=== PATIENT | female | born 1985 | race African-American/Black ===

== ENCOUNTER 2016-09-14 12:40 | Emergency (ER) | payer OTHER ==
[~2016-09-14] VITALS: Ht 165.1 cm; Wt 72.6 kg
[~2016-09-14 12:40] MED LIST: ALBUTEROL SULF8.5 GM INH; ANUSOL-HC CREAM30 GM RECTAL; AZITHROMYCIN250 MG ORAL; BACTRIM DS TAB1 EAC1 ORAL; BENTYL10 MG ORAL; CIPRO500 MG PO; COLACE100 MG ORAL; DIFLUCAN200 MG ORAL; DOXYCYCLINE MO100 M1 PO; FLAGYL500 MG ORAL; FLONASE1 SPRAYS NASAL; HYDROCODON-ACE1 EA15 ORAL; IBUPROFEN600 MG ORAL; IBUPROFEN600 MG PO; MEDROL DOSEPAK4 MG ORAL; METRONIDAZOLE500 MG PO; NITROFURANTOIN100 M2 ORAL; NITROFURANTOIN100 MG PO; NKM; NORCO 5-325 TA1 EACH ORAL; OMEPRAZOLE40 M1 ORAL; PRILOSEC20 MG ORAL; PROMETHAZINE-C118 M1 ORAL; PROMETHAZINE-D118 ML ORAL; PYRIDIUM100 MG ORAL; PYRIDIUM200 M1 ORAL; VICODIN 5-5001 EACH ORAL; ZANTAC150 MG ORAL; ZITHROMAX250 MG ORAL; ZOFRAN ODT4 MG ORAL; ZOFRAN4 MG ORAL; [UNRECOGNIZED DRUG - REMARK] PO
[2016-09-14 13:00] VITALS: BP 120/82
[2016-09-14] MEDS ORDERED: Famotidine 20 MG/ 2ML VIAL IVP ONE (14:00)
[2016-09-14] MEDS ORDERED: Morphine Sulfate 2mg/ml Inj IVP ONE (14:00)
--- NOTE | 2016-09-14 14:11 | Emergency Room Report ---
History of Present Illness General Chief Complaint: Abdominal Pain Source: Patient, Medical Record Present Illness HPI The patient presents 4 days of midepigastric abdominal pain. The pain is fairly severe at 9/10 at this time. It's constant and radiates towards her back. She took a Zantac yesterday without relief. She denies vomiting any blood or coffee grounds. Addition to that she's not had any diarrhea or melena. Her last period was normal to began a month. She denies any dysuria. Just denies any upper respiratory symptomatology including cough, sore throat. She's had this pain in the past. She denies any problems with her gallbladder. She feels cold but denies any fevers or chills. Had abd CT 05/2015 Multiple visits for abdominal pain with h/o gastritis. Multiple UTIs. Several years ago with OD. Listed in dx in past of opiate dependence (not able to find charts documenting this). Allergies: Coded Allergies: No Known Allergies (Unverified , 06/22/12) Patient History Past Medical History: see triage record, old chart reviewed Social History: Denies: smoking Social History Narrative From home - came on bus but will get ride from Mother Last Menstrual Period: 08/23/16 Now: No Reviewed Nursing Documentation: PMH: Agreed, PSxH: Agreed Nursing Documentation-PMH Past Medical History: No Stated History Review of Systems All Other Systems: negative except mentioned in HPI Physical Exam Vital Signs Date Time Temp Pulse Resp B/P Pulse Ox O2 Delivery O2 Flow Rate FiO2 09/14/16 12:55 98.4 66 16 120/82 100 Room Air Medical Decision Making Diagnostic Impression: Primary Impression: Abdominal pain Qualified Codes: R10.13 - Epigastric pain ER Course The patient presents with epigastric pain and vomiting. Differential includes gastritis, gallbladder etiology, peptic ulcer disease, GERD, gastroenteritis although there is no diarrhea. Urgent evaluation with labs will be undertaken. Patient does not appear toxic. She will be treated with IV hydration and Pepcid along with analgesia. Labs significant for normal WBC and h/h. Lipase also normal with normal LFTs. UA without infection. Patient required second dose of analgesia. Doing better. Needs follow up with PMD. Patient stable for outpatient observation and treatment. Laboratory Tests Test 09/14/16 14:10 09/14/16 14:15 White Blood Count 5.8 K/UL (4.8-10.8) Red Blood Count 5.06 M/UL (4.20-5.40) Hemoglobin 15.0 G/DL (12.0-16.0) Hematocrit 46.9 % (37.0-47.0) Mean Corpuscular Volume 93 FL (80-99) Mean Corpuscular Hemoglobin 29.6 PG (27.0-31.0) Mean Corpuscular Hemoglobin Concent 31.9 G/DL (32.0-36.0) L Red Cell Distribution Width 12.2 % (11.6-14.8) Platelet Count 359 K/UL (150-450) Mean Platelet Volume 6.1 FL (6.5-10.1) L Neutrophils (%) (Auto) 42.9 % (45.0-75.0) L Lymphocytes (%) (Auto) 47.8 % (20.0-45.0) H Monocytes (%) (Auto) 7.6 % (1.0-10.0) Eosinophils (%) (Auto) 0.7 % (0.0-3.0) Basophils (%) (Auto) 1.0 % (0.0-2.0) Sodium Level 136 mEQ/L (135-145) Potassium Level 4.2 mEQ/L (3.4-4.9) Chloride Level 96 mEQ/L (98-107) L Carbon Dioxide Level 25 mEQ/L (20-30) Anion Gap 15 (5-15) Blood Urea Nitrogen 5 mg/dL (7-23) L Creatinine 0.9 mg/dL (0.5-0.9) Estimate Glomerular Filtration Rate > 60 mL/min (>60) Glucose Level 95 mg/dL (74-106) Calcium Level 9.7 mg/dL (8.6-10.2) Total Bilirubin 0.4 mg/dL (0.0-1.2) Aspartate Amino Transferase (AST) 13 U/L (5-40) Alanine Aminotransferase (ALT) 14 U/L (3-33) Alkaline Phosphatase 58 U/L (35-104) Total Protein 8.1 g/dL (6.6-8.7) Albumin 4.5 g/dL (3.5-5.2) Globulin 3.6 g/dL Albumin/Globulin Ratio 1.2 (1.0-2.7) Lipase 16 U/L (< 60) Urine Color Yellow Urine Appearance Slightly cloudy Urine pH 6 (4.5-8.0) Urine Specific [place] 1.020 (1.005-1.035) Urine Protein 1+ (NEGATIVE) H Urine Glucose (UA) Negative (NEGATIVE) Urine Ketones 3+ (NEGATIVE) H Urine Occult Blood Negative (NEGATIVE) Urine Nitrite Negative (NEGATIVE) Urine Bilirubin Negative (NEGATIVE) Urine Urobilinogen 4 MG/DL (0.0-1.0) H Urine Leukocyte Esterase 1+ (NEGATIVE) H Urine RBC 0-2 /HPF (0 - 2) Urine WBC 2-4 /HPF (0 - 2) Urine Squamous Epithelial Cells Few /LPF (NONE/OCC) Urine Bacteria Few /HPF (NONE) Urine HCG, Qualitative Negative Last Vital Signs Date Time Temp Pulse Resp B/P Pulse Ox O2 Delivery O2 Flow Rate FiO2 09/14/16 18:35 98.6 09/14/16 18:34 72 18 130/60 100 Room Air 72 Status: improved Disposition: HOME, SELF-CARE Condition: Improved Scripts Ondansetron Odt* (ZOFRAN ODT*) 4 Mg Tab.rapdis 4 MG ORAL Q8H Y for Nausea & Vomiting, #6 TAB 0 Refills Prov: Deonte De Leon M.D. 09/14/16 Famotidine (PEPCID) 20 Mg Tablet 20 MG ORAL DAILY, #30 TAB 0 Refills Prov: Deonte De Leon M.D. 09/14/16 Hydrocodone Bit/Acetaminophen 5-325* (NORCO 5-325*) 1 Each Tablet 1 TAB ORAL Q6H Y for For Pain, #10 TAB 0 Refills Prov: Deonte De Leon M.D. 09/14/16 Deonte De Leon M.D. Sep 14, 2016 14:11
[2016-09-14] MEDS ORDERED: Tubing IV Cassette IV ONE (14:23)
[2016-09-14 14:32] LABS: APPEARANCE,URINE SLIGHTLY CLOUDY; KETONES,URINE 3+ (NEGATIVE); LEUKOCYTE ESTERASE ,URINE 1+ (NEGATIVE); NITRITE,URINE NEGATIVE (NEGATIVE); PH,URINE 6 (4.5-8.0); PROTEIN,URINE 1+ (NEGATIVE); UROBILINOGEN,URINE 4 MG/DL (0.0-1.0)
[2016-09-14 14:33] LABS: EOSINOPHILS % (AUTO) 0.7 % (0.0-3.0); LYMPHOCYTES % (AUTO) 47.8 % (20.0-45.0); MEAN CORPUSCULAR HEMOGLOBIN 29.6 PG (27.0-31.0); MEAN CORPUSCULAR HGB CONC 31.9 G/DL (32.0-36.0); MEAN CORPUSCULAR VOLUME 93 FL (80-99); MEAN PLATELET VOLUME 6.1 FL (6.5-10.1); MONOCYTES % (AUTO) 7.6 % (1.0-10.0); NEUTROPHILS % (AUTO) 42.9 % (45.0-75.0); PLATELET COUNT 359 K/UL (150-450); RED BLOOD COUNT 5.06 M/UL (4.20-5.40); RED CELL DISTRIBUTION WIDTH 12.2 % (11.6-14.8); WHITE BLOOD COUNT 5.8 K/UL (4.8-10.8)
[2016-09-14 14:50] LABS: ALANINE AMINOTRANSFERASE 14 U/L (3-33); ALBUMIN/GLOBULIN RATIO 1.2 (1.0-2.7); ANION GAP 15 (5-15); ASPARTATE AMINO TRANSFERASE 13 U/L (5-40); CALCIUM 9.7 mg/dL (8.6-10.2); CARBON DIOXIDE 25 mEQ/L (20-30); CHLORIDE 96 mEQ/L (98-107); CREATININE 0.9 mg/dL (0.5-0.9); GLOMERULAR FILTRATION RATE > 60 mL/min (>60); HEMOLYSIS 25; LIPASE 16 U/L (< 60); POTASSIUM 4.2 mEQ/L (3.4-4.9); SODIUM 136 mEQ/L (135-145); TOTAL PROTEIN 8.1 g/dL (6.6-8.7)
[2016-09-14 14:50] LABS: BACTERIA,URINE FEW /HPF; RBC,URINE 0-2 /HPF (0 - 2); SQUAMOUS EPITHELIAL CELL,UR FEW /LPF (NONE/OCC)
[2016-09-14 15:19] VITALS: BP 126/62
[2016-09-14] MEDS ORDERED: Morphine Sulfate 4mg/ml Inj IVP ONE (18:00)
[2016-09-14] MEDS ORDERED: ZOFRAN ODT4 MG ORAL (18:29)
[2016-09-14] MEDS ORDERED: PEPCID20 MG ORAL (18:29)
[2016-09-14] MEDS ORDERED: NORCO 5-325 TA1 EACH ORAL (18:29)
[2016-09-14 18:34] VITALS: BP 130/60
== END 2016-09-14 18:34 | disposition home or self-care (01) ==
LOC: EMR 14:24
DX: R10.13 Epigastric pain (principal); R11.10 Vomiting, unspecified
CPT/HCPCS: 36415; 80053; 81003; 81025; 83690; 85025; 96361; 96374; 96375; 99284; J2270; J2405; S0028

== ENCOUNTER 2017-01-31 12:05 | Emergency (ER) | payer OTHER ==
[~2017-01-31] VITALS: Ht 167.6 cm; Wt 80.7 kg
[~2017-01-31 12:05] MED LIST changes: +PEPCID20 MG ORAL
--- NOTE | 2017-01-31 12:53 | Emergency Room Report ---
History of Present Illness General Chief Complaint: Lower Extremity Injury Source: Patient Present Illness HPI 31 YO Female presents to the ED c/o puncture wound to Left Foot since yesterday pt. reports 7/10 pain localized that is exacerbated with palpation or wearing tight shoes. Pt. states she sustained puncture from large piece of sharp glass. pt. denies small fragments of glass or fb. pt. reports mild surrounding erythema to wound that has been progressive, reports mild swelling, denies bone pain or tenderness. pt. denies fevers, chills, or increased temperature of the affected extremity. Pt states she is UTD with tetanus vaccination. Denies numbness tingling or loss of sensation or gross motor movements of the extremities, incontinence of bowel or bladder. Denies CP, Palpitations, LOC, AMS, dizziness, Changes in Vision, Sensation, paresthesias, or a sudden severe headache. Allergies: Coded Allergies: No Known Allergies (Unverified , 06/22/12) Patient History Past Medical History: see triage record Past Surgical History: none Pertinent Family History: none Last Menstrual Period: 01/23/17 Now: No : 5 Para: 1 Immunizations: UTD Reviewed Nursing Documentation: PMH: Agreed, PSxH: Agreed Nursing Documentation-PMH Past Medical History: No Stated History Review of Systems All Other Systems: negative except mentioned in HPI Physical Exam Vital Signs Date Time Temp Pulse Resp B/P Pulse Ox O2 Delivery O2 Flow Rate FiO2 01/31/17 12:12 97.7 102 17 126/82 98 Room Air Sp02 EP Interpretation: reviewed, normal General Appearance: no apparent distress, alert, GCS 15, non-toxic Head: normocephalic, atraumatic Eyes: bilateral eye PERRL, bilateral eye normal inspection ENT: hearing grossly normal, normal pharynx, no angioedema, normal voice Neck: full range of motion, supple/symm/no masses Respiratory: lungs clear, normal breath sounds, speaking full sentences Cardiovascular #1: regular rate, rhythm, no edema Cardiovascular #2: 2+ dorsalis pedis (R), 2+ dorsalis pedis (L) Rectal: deferred Musculoskeletal: back normal, gait/station normal, normal range of motion, non- tender, no calf tenderness Neurologic: alert, oriented x3, responsive, motor strength/tone normal, sensory intact, speech normal Psychiatric: judgement/insight normal, memory normal, mood/affect normal, no suicidal/homicidal ideation Skin: normal color, no rash, warm/dry, well hydrated, other - 0.5cm puncture wound to the left medial foot with surrounding erythema, no evidence of fb, no bleeding at this time, Lymphatic: no adenopathy Medical Decision Making PA Attestation Dr. trivedi is my supervising Physician whom patient management has been discussed with. Diagnostic Impression: Primary Impression: Puncture wound ER Course Pt. presents to the ED c/o puncture wound to Left Foot since yesterday. Ddx considered but are not limited to foreign body, tendon injury, cellulitis, Vital signs: are WNL, pt. is afebrile H&PE are most consistent with: Puncture wound of the left medial foot, no evidence of foreign body or infection at this time. ORDERS: none required at this time, the diagnosis is clinical ED INTERVENTIONS: - The wound was copiously irrigated with normal saline, and explored for foreign body for which no FB was found. -Discussed with patient that we do not close puncture wounds as that would increase his risk of infection. -bacitracin is applied by RN. - Discussed with patient that we will be treating her with oral antibiotics. DISCHARGE: At this time pt. is stable for d/c to home. Will provide printed patient care instructions, and any necessary prescriptions. Care plan and follow up instructions have been discussed with the patient prior to discharge. Last Vital Signs Date Time Temp Pulse Resp B/P Pulse Ox O2 Delivery O2 Flow Rate FiO2 01/31/17 12:12 97.7 102 17 126/82 98 Room Air Disposition: HOME, SELF-CARE Condition: Stable Scripts Ibuprofen* (MOTRIN*) 600 Mg Tablet 600 MG ORAL THREE TIMES A DAY, #30 TAB 0 Refills Prov: Maria Del Rosario Kirk P.AJelly 01/31/17 Bacitracin/Polymyxin B Sulfate (BACITRACIN-POLYMYXIN OINTMENT) 28.35 Gm Oint...g. 1 APPLIC TP BID, #28.3 GM Prov: Maria Del Rosario Kirk P.A. 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 Return to Full Activity: Feb 07, 2017 Patient Instructions: Puncture Wound, [id number] Additional Instructions: Take medications as directed. Follow up with PCP in 3-5 days Return sooner to ED if new symptoms occur, or current symptoms become worse. - Please note that this Emergency Department Report was dictated using MATIvisioncertified nurse operating room technology software, occasionally this can lead to erroneous entry secondary to interpretation by the dictation equipment. Maria Del Rosario Kirk Jan 31, 2017 12:53
[2017-01-31] MEDS ORDERED: CEPHALEXIN500 MG ORAL (12:54)
[2017-01-31] MEDS ORDERED: IBUPROFEN600 MG ORAL (12:54)
[2017-01-31] MEDS ORDERED: BACITRACIN-P28.35 GM TP (12:54)
[2017-01-31] MEDS ORDERED: Bacitracin Oint UD TOPIC ONE (13:00)
[2017-01-31 13:06] VITALS: BP 126/82
== END 2017-01-31 13:08 | disposition home or self-care (01) ==
LOC: EMR 12:37
DX: S91.332A Puncture wound without foreign body, left foot, initial encounter (principal); W25.XXXA Contact with sharp glass, initial encounter; Y93.9 Activity, unspecified; Y92.9 Unspecified place or not applicable
CPT/HCPCS: 99284

== ENCOUNTER 2017-02-23 19:57 | Emergency (ER) | payer OTHER ==
[~2017-02-23] VITALS: Ht 167.6 cm; Wt 80.7 kg
[~2017-02-23 19:57] MED LIST changes: +BACITRACIN-P28.35 GM TP; +CEPHALEXIN500 MG ORAL
[2017-02-23 20:15] VITALS: BP 120/84
[2017-02-23] MEDS ORDERED: Morphine Sulfate 4mg/ml Inj IVP ONE (20:30)
[2017-02-23 20:37] LABS: APPEARANCE,URINE CLEAR; BASOPHILS % (AUTO) 1.4 % (0.0-2.0); EOSINOPHILS % (AUTO) 1.5 % (0.0-3.0); KETONES,URINE NEGATIVE (NEGATIVE); LEUKOCYTE ESTERASE ,URINE 1+ (NEGATIVE); LYMPHOCYTES % (AUTO) 47.1 % (20.0-45.0); MEAN CORPUSCULAR HEMOGLOBIN 30.4 PG (27.0-31.0); MEAN CORPUSCULAR HGB CONC 32.7 G/DL (32.0-36.0); MEAN CORPUSCULAR VOLUME 93 FL (80-99); MEAN PLATELET VOLUME 6.1 FL (6.5-10.1); MONOCYTES % (AUTO) 3.9 % (1.0-10.0); NEUTROPHILS % (AUTO) 46.1 % (45.0-75.0); NITRITE,URINE NEGATIVE (NEGATIVE); PH,URINE 5 (4.5-8.0); PLATELET COUNT 310 K/UL (150-450); PROTEIN,URINE NEGATIVE (NEGATIVE); RED BLOOD COUNT 4.35 M/UL (4.20-5.40); RED CELL DISTRIBUTION WIDTH 13.8 % (11.6-14.8); UROBILINOGEN,URINE NORMAL MG/DL (0.0-1.0); WHITE BLOOD COUNT 7.6 K/UL (4.8-10.8)
[2017-02-23 20:44] LABS: RBC,URINE 0-2 /HPF (0 - 2)
[2017-02-23 20:45] LABS: WBC,URINE 0-2 /HPF (0 - 2)
[2017-02-23 20:52] LABS: ALANINE AMINOTRANSFERASE 8 U/L (3-33); ALBUMIN/GLOBULIN RATIO 1.2 (1.0-2.7); ANION GAP 11 (5-15); ASPARTATE AMINO TRANSFERASE 11 U/L (5-40); CALCIUM 9.9 mg/dL (8.6-10.2); CARBON DIOXIDE 26 mEQ/L (20-30); CHLORIDE 100 mEQ/L (98-107); CREATININE 0.7 mg/dL (0.5-0.9); GLOMERULAR FILTRATION RATE > 60 mL/min (>60); HEMOLYSIS 7; INR 0.9 (0.9-1.1); LIPASE 18 U/L (< 60); POTASSIUM 4.4 mEQ/L (3.4-4.9); PROTHROMBIN TIME 9.7 SEC (9.30-11.50); SODIUM 137 mEQ/L (135-145)
[2017-02-23] MEDS ORDERED: Oxycodone/Acetaminophen 5-325 ORAL ONE (21:45)
--- NOTE | 2017-02-23 21:45 | Emergency Room Report ---
History of Present Illness General Chief Complaint: Abdominal Pain Source: Patient Present Illness HPI Patient presents with RUQ pain. Severe and constant. Achy pressure with some burning. 04/29. Not take any medicine. Also radiates into chest. No cough, wheezing or fevers. She's had abdominal pain evaluations here in past. 12/30/14 - had u/s - normal. 01/20/16 CT - no appi. Had eval 09/14/16 for abdominal pain. Her last period was normal. No rashes, URI, cough, dyspnea, calf swell or pain, diarrhea, melena, dysuria. Not anxious. Allergies: Coded Allergies: No Known Allergies (Unverified , 06/22/12) Patient History Past Medical History: see triage record Social History: Denies: smoking Social History Narrative at home Last Menstrual Period: A WEEK AGO Now: No Reviewed Nursing Documentation: PMH: Agreed, PSxH: Agreed Nursing Documentation-PMH Past Medical History: No Stated History Review of Systems All Other Systems: negative except mentioned in HPI Physical Exam Vital Signs Date Time Temp Pulse Resp B/P Pulse Ox O2 Delivery O2 Flow Rate FiO2 02/23/17 20:05 98.2 98 18 125/83 98 Room Air Sp02 EP Interpretation: reviewed, normal General Appearance: well appearing, no apparent distress, GCS 15 Head: normocephalic Eyes: bilateral eye PERRL, bilateral eye normal inspection ENT: moist mucus membranes Neck: supple Respiratory: lungs clear, normal breath sounds Cardiovascular #1: regular rate, rhythm Cardiovascular #2: 2+ radial (R) Gastrointestinal: normal inspection, normal bowel sounds, no mass, non- distended, no guarding, no rebound, tenderness - RUQ Musculoskeletal: back normal, gait/station normal, normal range of motion Neurologic: alert, oriented x3, grossly normal Psychiatric: mood/affect normal Skin: normal inspection, warm/dry Medical Decision Making Diagnostic Impression: Primary Impression: Abdominal pain Qualified Codes: R10.11 - Right upper quadrant pain Ruled Out: Gallstone ER Course Patient presents with RUQ abdominal pain. ddx: gastritis, PUD, gall stones amongst others. Pain reported as severe therefore evaluation with labs and ultrasound. Treatment with IV hydration and analgesia. Labs with normal WBC, lytes, lipase. UA normal. Ultrasound no gall stones. Patient improved. Patient stable for outpatient observation and treatment. Laboratory Tests Test 02/23/17 20:00 White Blood Count 7.6 K/UL (4.8-10.8) Red Blood Count 4.35 M/UL (4.20-5.40) Hemoglobin 13.2 G/DL (12.0-16.0) Hematocrit 40.4 % (37.0-47.0) Mean Corpuscular Volume 93 FL (80-99) Mean Corpuscular Hemoglobin 30.4 PG (27.0-31.0) Mean Corpuscular Hemoglobin Concent 32.7 G/DL (32.0-36.0) Red Cell Distribution Width 13.8 % (11.6-14.8) Platelet Count 310 K/UL (150-450) Mean Platelet Volume 6.1 FL (6.5-10.1) L Neutrophils (%) (Auto) 46.1 % (45.0-75.0) Lymphocytes (%) (Auto) 47.1 % (20.0-45.0) H Monocytes (%) (Auto) 3.9 % (1.0-10.0) Eosinophils (%) (Auto) 1.5 % (0.0-3.0) Basophils (%) (Auto) 1.4 % (0.0-2.0) Prothrombin Time 9.7 SEC (9.30-11.50) Prothrombin Time INR 0.9 (0.9-1.1) PTT 30 SEC (23-33) Urine Color Pale yellow Urine Appearance Clear Urine pH 5 (4.5-8.0) Urine Specific [place] 1.025 (1.005-1.035) Urine Protein Negative (NEGATIVE) Urine Glucose (UA) Negative (NEGATIVE) Urine Ketones Negative (NEGATIVE) Urine Occult Blood Negative (NEGATIVE) Urine Nitrite Negative (NEGATIVE) Urine Bilirubin Negative (NEGATIVE) Urine Urobilinogen Normal MG/DL (0.0-1.0) Urine Leukocyte Esterase 1+ (NEGATIVE) H Urine RBC 0-2 /HPF (0 - 2) Urine WBC 0-2 /HPF (0 - 2) Urine Squamous Epithelial Cells None /LPF (NONE/OCC) Urine Bacteria None /HPF (NONE) Urine HCG, Qualitative Negative Sodium Level 137 mEQ/L (135-145) Potassium Level 4.4 mEQ/L (3.4-4.9) Chloride Level 100 mEQ/L (98-107) Carbon Dioxide Level 26 mEQ/L (20-30) Anion Gap 11 (5-15) Blood Urea Nitrogen 13 mg/dL (7-23) Creatinine 0.7 mg/dL (0.5-0.9) Estimate Glomerular Filtration Rate > 60 mL/min (>60) Glucose Level 81 mg/dL (74-106) Calcium Level 9.9 mg/dL (8.6-10.2) Total Bilirubin < 0.2 mg/dL (0.0-1.2) Aspartate Amino Transferase (AST) 11 U/L (5-40) Alanine Aminotransferase (ALT) 8 U/L (3-33) Alkaline Phosphatase 71 U/L (35-104) Total Protein 8.0 g/dL (6.6-8.7) Albumin 4.4 g/dL (3.5-5.2) Globulin 3.6 g/dL Albumin/Globulin Ratio 1.2 (1.0-2.7) Lipase 18 U/L (< 60) CT/MRI/US Diagnostic Results CT/MRI/US Diagnostic Results : Imaging Test Ordered: u/s abd Impression no gall stones Findings: Comparison: 1315. Liver normal size and surface contour, parenchymal echogenicity. No focal lesions. Gallbladder unremarkable. No intraluminal stones or sludge. No mural thickening or adjacent fluid collections. Sonographic Cannon sign negative.. Bile ducts normal caliber. Common bile duct 4 mm. Pancreas visualized portions unremarkable. Spleen unremarkable. Right kidney unremarkable. Left kidney unremarkable. Proximal and mid abdominal aorta, intrahepatic portion of inferior vena cava patent, normal caliber. Sulci are obscured by bowel gas. Duplex Doppler imaging demonstrates antegrade flow in splenic, portal, hepatic veins. No ascites. IMPRESSION: Incomplete visualization of abdominal aorta Otherwise negative abdominal ultrasound, unchanged. Last Vital Signs Date Time Temp Pulse Resp B/P Pulse Ox O2 Delivery O2 Flow Rate FiO2 02/23/17 22:25 98.4 74 16 126/82 100 Room Air Status: improved Disposition: HOME, SELF-CARE Condition: Improved Scripts Ondansetron Odt* (ZOFRAN ODT*) 4 Mg Tab.rapdis 4 MG ORAL Q6H Y for Nausea & Vomiting, #6 TAB 1 Refill Prov: Deonte De Leon M.D. 02/23/17 Tramadol Hcl* (ULTRAM*) 50 Mg Tablet 50 MG ORAL Q6H Y for For Pain, #10 TAB 0 Refills Prov: Deonte De Leon M.D. 02/23/17 Famotidine (PEPCID) 20 Mg Tablet 20 MG ORAL DAILY, #30 TAB 0 Refills Prov: Deonte De Leon M.D. 02/23/17 Deonte De Leon M.D. Feb 23, 2017 21:45
[2017-02-23] MEDS ORDERED: TRAMADOL HCL50 MG ORAL (21:47)
[2017-02-23] MEDS ORDERED: PEPCID20 MG ORAL (21:47)
[2017-02-23] MEDS ORDERED: ZOFRAN ODT4 MG ORAL (21:47)
[2017-02-23 22:25] VITALS: BP 126/82
--- NOTE | 2017-02-26 08:39 | Diagnostic Imaging Report ---
Indications: Abdominal pain Technique: Transabdominal real-time grayscale and duplex Doppler imaging of the upper abdomen and retroperitoneum was performed. Findings: Comparison: 1315. Liver normal size and surface contour, parenchymal echogenicity. No focal lesions. Gallbladder unremarkable. No intraluminal stones or sludge. No mural thickening or adjacent fluid collections. Sonographic Cannon sign negative.. Bile ducts normal caliber. Common bile duct 4 mm. Pancreas visualized portions unremarkable. Spleen unremarkable. Right kidney unremarkable. Left kidney unremarkable. Proximal and mid abdominal aorta, intrahepatic portion of inferior vena cava patent, normal caliber. Sulci are obscured by bowel gas. Duplex Doppler imaging demonstrates antegrade flow in splenic, portal, hepatic veins. No ascites. IMPRESSION: Incomplete visualization of abdominal aorta Otherwise negative abdominal ultrasound, unchanged.
== END 2017-02-23 22:25 | disposition home or self-care (01) ==
LOC: EMR 20:40
DX: R10.11 Right upper quadrant pain (principal); R07.9 Chest pain, unspecified
CPT/HCPCS: 76700; 80053; 81003; 81025; 83690; 85025; 85610; 85730; 96361; 96374; 96375; 99284; J2270; J2405

== ENCOUNTER 2017-07-17 22:59 | Emergency (ER) | payer MEDICAID, OTHER ==
[~2017-07-17] VITALS: Ht 167.6 cm; Wt 77.1 kg
[~2017-07-17 22:59] MED LIST changes: +TRAMADOL HCL50 MG ORAL
--- NOTE | 2017-07-17 23:27 | Emergency Room Report ---
History of Present Illness General Chief Complaint: Abdominal Pain Source: Patient Present Illness HPI 31-year-old female walks in with 2 days of right upper quadrant pain associated with nausea, worse with eating food, worse with leaning and bending over. However pain also is in the left lower quadrant of abdomen. No associated vomiting, diarrhea, fever chills or recent travel or sick contacts. No previous abdominal or pelvic surgery. Patient did not take any medication for pain. Patient denies dysuria, polyuria. Patient denies history of renal stones. Patient states she does not have any other medical problems. Ultrasound on previous visits did not show any gallstones. Allergies: Coded Allergies: No Known Allergies (Unverified , 06/22/12) Patient History Past Medical History: none Past Surgical History: none Pertinent Family History: none Social History: Denies: smoking, alcohol use, drug use Last Menstrual Period: unk Now: No Immunizations: UTD Reviewed Nursing Documentation: PMH: Agreed, PSxH: Agreed Nursing Documentation-PMH Hx Gastrointestinal Problems: Yes - ETIENNE REFLUX Review of Systems All Other Systems: negative except mentioned in HPI Physical Exam Vital Signs Date Time Temp Pulse Resp B/P (MAP) Pulse Ox O2 Delivery O2 Flow Rate FiO2 07/17/17 23:04 98.1 78 16 123/86 100 Room Air Sp02 EP Interpretation: reviewed, normal General Appearance: normal inspection, well appearing, no apparent distress, alert, GCS 15, other - patient talking on phone in [place] Head: normocephalic, atraumatic Eyes: bilateral eye PERRL, bilateral eye EOMI ENT: normal ENT inspection, hearing grossly normal, normal voice Neck: normal inspection, full range of motion, supple, no bony tend Respiratory: normal inspection, lungs clear, normal breath sounds, no respiratory distress, no retraction, no wheezing Cardiovascular #1: regular rate, rhythm, no edema Gastrointestinal: normal inspection, normal bowel sounds, soft, no guarding, no hernia, other - Mild RUQ ttp. No peritonitis. 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 tested, speech normal Psychiatric: normal inspection, judgement/insight normal, mood/affect normal Skin: normal inspection, normal color, no rash Medical Decision Making Diagnostic Impression: Primary Impression: Abdominal pain Qualified Codes: R10.11 - Right upper quadrant pain ER Course 31-year-old female with 2 days of abdominal pain No signs stable, afebrile Labs negative for leukocytosis, H&H stable, no metabolic or LFT abnormality Urine negative Urinalysis negative for infection Differential includes gastritis or muscular skeletal pain Pain improved after IV Toradol and GI cocktail Unlikely acute bacterial or surgical emergency requiring additional workup, imaging, or admission at this time given patient's well appearance 2 days duration the pain and negative Lab workup ER course: Patient has remained stable during ED stay. Disposition: Patient is to be discharged to home. Prescriptions given are tylenol, pepcid Patient is instructed to follow up with their primary care doctor within 5 days. Strict return precautions discussed with patient such as fever, chills, worsening/severe pain, nausea, vomiting, which may indicate severe illness. Patient verbalizes understanding and agrees with plan. Please note that this Emergency Department Report was dictated using [employer] Techcoal shoveler technology software, occasionally this can lead to erroneous entry secondary to interpretation by the dictation equipment Last Vital Signs Date Time Temp Pulse Resp B/P (MAP) Pulse Ox O2 Delivery O2 Flow Rate FiO2 07/17/17 23:04 98.1 78 16 123/86 100 Room Air Status: improved Disposition: HOME, SELF-CARE Scripts Acetaminophen (Tylenol) 325 Mg Tablet 650 MG ORAL Q6H Y for Prn Pain/Headache/Temp > 101 for 7 Days, #30 TAB 0 Refills Prov: ALYSSA THACKER M.D. 07/18/17 Famotidine (PEPCID) 40 Mg Tablet 40 MG PO DAILY for 7 Days, #14 TAB 0 Refills Prov: ALYSSA THACKER M.D. 07/18/17 ALYSSA THACKER M.D. Jul 17, 2017 23:26
[2017-07-17] MEDS ORDERED: Metoclopramide 10mg/2ml Inj IVP ONE (23:30)
[2017-07-17] MEDS ORDERED: Mylanta II UD 30ml ORAL ONE (23:30)
[2017-07-17] MEDS ORDERED: Lidocaine 2% Visc 15ml soln ORAL ONE (23:30)
[2017-07-17 23:42] LABS: APPEARANCE,URINE CLEAR; KETONES,URINE 1+ (NEGATIVE); LEUKOCYTE ESTERASE ,URINE NEGATIVE (NEGATIVE); NITRITE,URINE NEGATIVE (NEGATIVE); PH,URINE 6 (4.5-8.0); UROBILINOGEN,URINE 4 MG/DL (0.0-1.0)
[2017-07-17 23:45] LABS: BASOPHILS % (AUTO) 1.5 % (0.0-2.0); LYMPHOCYTES % (AUTO) 40.4 % (20.0-45.0); MEAN CORPUSCULAR HEMOGLOBIN 29.9 PG (27.0-31.0); MEAN CORPUSCULAR HGB CONC 32.5 G/DL (32.0-36.0); MEAN CORPUSCULAR VOLUME 92 FL (80-99); MEAN PLATELET VOLUME 6.1 FL (6.5-10.1); MONOCYTES % (AUTO) 4.7 % (1.0-10.0); NEUTROPHILS % (AUTO) 51.3 % (45.0-75.0); PLATELET COUNT 392 K/UL (150-450); RED BLOOD COUNT 4.22 M/UL (4.20-5.40); RED CELL DISTRIBUTION WIDTH 12.4 % (11.6-14.8); WHITE BLOOD COUNT 8.1 K/UL (4.8-10.8)
[2017-07-17] MEDS ORDERED: Ketorolac 30mg Inj IV ONE (23:45)
[2017-07-17 23:48] VITALS: BP 126/84
[2017-07-17 23:48] LABS: PROTEIN,URINE NEGATIVE (NEGATIVE)
[2017-07-17 23:58] LABS: ALANINE AMINOTRANSFERASE 24 U/L (12-78); ALBUMIN/GLOBULIN RATIO 0.7 (1.0-2.7); ANION GAP 8 mmol/L (5-15); ASPARTATE AMINO TRANSFERASE 15 U/L (15-37); CALCIUM 8.9 MG/DL (8.5-10.1); CARBON DIOXIDE 26 MMOL/L (21-32); CHLORIDE 100 MMOL/L (98-107); CREATININE 0.7 MG/DL (0.55-1.30); GLOMERULAR FILTRATION RATE > 60 mL/min (>60); LIPASE 78 U/L (73-393); POTASSIUM 3.7 MMOL/L (3.5-5.1); SODIUM 134 MMOL/L (136-145); TOTAL PROTEIN 8.2 G/DL (6.4-8.2)
[2017-07-18] MEDS ORDERED: PEPCID40 MG PO (00:29)
[2017-07-18] MEDS ORDERED: TYLENOL325 MG ORAL (00:29)
[2017-07-18 00:36] VITALS: BP 122/82
[2017-07-18 00:37] VITALS: BP 122/82
== END 2017-07-18 00:40 | disposition home or self-care (01) ==
LOC: EMR 23:15
DX: R10.31 Right lower quadrant pain (principal); K21.9 Gastro-esophageal reflux disease without esophagitis
CPT/HCPCS: 36415; 80053; 81003; 81025; 83690; 85025; 96374; 96375; 99284; J1885; J2765

== ENCOUNTER 2018-05-05 17:24 | Emergency (ER) | payer MEDICAID ==
[~2018-05-05] VITALS: Ht 165.1 cm; Wt 89.8 kg
[~2018-05-05 17:24] MED LIST changes: +PEPCID40 MG PO; +TYLENOL325 MG ORAL
--- NOTE | 2018-05-05 17:53 | Emergency Room Report ---
History of Present Illness General Chief Complaint: General Complaint Source: Patient (Bear Ken) Source: Patient (Michael Rosales MD) Present Illness HPI Patient is a 32-year-old female presented after increased skin rash for lower extremity is. Patient reports having increased itchiness to her lower legs. Patient is presently 27 . Patient denies any fever. She reports having multiple bites. The patient denies any vaginal bleeding. She reports having movement immediately prior to being seen. She had not been having any leakage of fluid. She was having moderate itching. (Michael Rosales MD) Allergies: Coded Allergies: No Known Allergies (Unverified , 06/22/12) Patient History Last Menstrual Period: 10/10/17 Now: Yes : 2 Para: 1 (Bear Ken) Past Medical History: see triage record Reviewed Nursing Documentation: PMH: Agreed; PSxH: Agreed (Michael Rosales MD) Nursing Documentation-PMH Hx Gastrointestinal Problems: Yes - ACID REFLUX (Bear Ken) Review of Systems All Other Systems: negative except mentioned in HPI (Michael Rosales MD) Physical Exam Vital Signs Date Time Temp Pulse Resp B/P (MAP) Pulse Ox O2 Delivery O2 Flow Rate FiO2 05/05/18 17:28 98.1 109 22 118/72 96 Room Air 98.1 (Bear Ken) Sp02 EP Interpretation: reviewed, normal General Appearance: normal inspection, well appearing, no apparent distress, alert, GCS 15 Head: atraumatic ENT: normal ENT inspection, hearing grossly normal, normal voice Neck: normal inspection, full range of motion, supple, no bony tend Respiratory: normal inspection, lungs clear, normal breath sounds, no respiratory distress, no retraction, no wheezing Cardiovascular #1: regular rate, rhythm, no edema Gastrointestinal: normal inspection, normal bowel sounds, non tender, soft, no guarding, no hernia, other Genitourinary: no CVA tenderness Musculoskeletal: normal inspection, back normal, normal range of motion Neurologic: normal inspection, alert, oriented x3, 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 Differential diagnosis included was not limited to abscess, contact dermatitis, scabies, among others. Patient has a benign exam and does not appear to require any further imaging or laboratory testing at this time. The patient was given prescription for hydrocortisone cream. She is advised follow-up with her [facility] for further evaluation. (Michael Rosales MD) Last Vital Signs Date Time Temp Pulse Resp B/P (MAP) Pulse Ox O2 Delivery O2 Flow Rate FiO2 05/05/18 17:28 98.1 109 22 118/72 96 Room Air 98.1 (Bear Ken) Status: improved (Michael Rosales MD) Disposition: HOME, SELF-CARE Condition: Stable Scripts Hydrocortisone Acetate 1% Onit (HYDROCORTISONE 1% OINT) Y Oint 28 GM TP DAILY, #28 GM Prov: Michael Rosales MD 05/05/18 Bear Ken May 05, 2018 17:53 Michael Rosales MD May 07, 2018 21:53
[2018-05-05 17:57] VITALS: BP 118/72
[2018-05-05] MEDS ORDERED: HYDROCORTISONE28 G2 TP (18:04)
[2018-05-05 18:10] VITALS: BP 118/72
== END 2018-05-05 18:12 | disposition home or self-care (01) ==
LOC: EMR 18:00
DX: O26.893 Other specified pregnancy related conditions, third trimester (principal); S80.862A Insect bite (nonvenomous), left lower leg, initial encounter; S80.861A Insect bite (nonvenomous), right lower leg, initial encounter; W57.XXXA Bitten or stung by nonvenomous insect and other nonvenomous arthropods, initial encounter; Z3A.00 Weeks of gestation of pregnancy not specified; Y93.9 Activity, unspecified; Y92.9 Unspecified place or not applicable; Y99.9 Unspecified external cause status; Z37.9 Outcome of delivery, unspecified
CPT/HCPCS: 99282

== ENCOUNTER 2018-11-04 12:02 | Emergency (ER) | payer MEDICAID ==
[~2018-11-04] VITALS: Ht 165.1 cm; Wt 80.3 kg
[~2018-11-04 12:02] MED LIST changes: +HYDROCORTISONE28 G2 TP
--- NOTE | 2018-11-04 12:19 | NUR ---
ED Nurse Note: PT WALKED IN TO ER TODAY FROM HOME. AOX4. PT C/O UPPER MEDIAL ABDOMINAL PAIN, 10/ X 3 DAYS ACCOMPANIED BY NAUSEA AND MULTIPLE EPISODES OF VOMITING. LAST EPISODE OF VOMITING X TODAY WHICH PT STATES WAS CLEAR. PT DENIES DIARRHEA. ACTIVE BOWEL SOUNDS IN ALL QUADRANTS. ABDOMEN NONDISTENDED AND NONTENDER TO PALPATION.
[2018-11-04 12:20] VITALS: BP 155/113
[2018-11-04] MEDS ORDERED: Mylanta II UD 30ml ORAL ONE (12:30)
[2018-11-04] MEDS ORDERED: Dicyclomine HCl 10mg/5ml oral soln ORAL ONE (12:30)
[2018-11-04] MEDS ORDERED: Lidocaine 2% Visc 15ml soln ORAL ONE (12:30)
[2018-11-04 12:47] LABS: BASOPHILS % (AUTO) 1.2 % (0.0-2.0); EOSINOPHILS % (AUTO) 1.8 % (0.0-3.0); HEMATOCRIT 44.7 % (37.0-47.0); HEMOGLOBIN 14.4 G/DL (12.0-16.0); LYMPHOCYTES % (AUTO) 32.3 % (20.0-45.0); MEAN CORPUSCULAR VOLUME 94 FL (80-99); MONOCYTES % (AUTO) 6.6 % (1.0-10.0); NEUTROPHILS % (AUTO) 58.1 % (45.0-75.0); PLATELET COUNT 328 K/UL (150-450); RED BLOOD COUNT 4.76 M/UL (4.20-5.40); RED CELL DISTRIBUTION WIDTH 13.8 % (11.6-14.8); WHITE BLOOD COUNT 6.1 K/UL (4.8-10.8)
[2018-11-04 12:49] LABS: APPEARANCE,URINE SLIGHTLY CLOUDY; BILIRUBIN, URINE 1+ (NEGATIVE); GLUCOSE, URINE (UA) NEGATIVE (NEGATIVE); KETONES,URINE 3+ (NEGATIVE); LEUKOCYTE ESTERASE ,URINE 3+ (NEGATIVE); NITRITE,URINE NEGATIVE (NEGATIVE); PH,URINE 5 (4.5-8.0); PROTEIN,URINE 2+ (NEGATIVE); UROBILINOGEN,URINE 4 MG/DL (0.0-1.0)
[2018-11-04 13:00] LABS: ANION GAP 12 mmol/L (5-15); BLOOD UREA NITROGEN 9 mg/dL (7-18); CALCIUM 9.6 MG/DL (8.5-10.1); CARBON DIOXIDE 26 MMOL/L (21-32); CHLORIDE 98 MMOL/L (98-107); CREATININE 0.8 MG/DL (0.55-1.30); POTASSIUM 3.3 MMOL/L (3.5-5.1); SODIUM 136 MMOL/L (136-145)
[2018-11-04 13:04] LABS: ALANINE AMINOTRANSFERASE 37 U/L (12-78); ALKALINE PHOSPHATASE 66 U/L (46-116); ASPARTATE AMINO TRANSFERASE 19 U/L (15-37); BILIRUBIN,TOTAL 0.5 MG/DL (0.2-1.0)
[2018-11-04 13:08] LABS: COLOR,URINE YELLOW
[2018-11-04] MEDS ORDERED: RANITIDINE HCL150 MG ORAL (13:22)
[2018-11-04] MEDS ORDERED: TYLENOL EXTRA500 MG ORAL (13:22)
[2018-11-04] MEDS ORDERED: ONDANSETRON ODT4 MG BC (13:22)
[2018-11-04] MEDS ORDERED: Ketorolac 30mg Inj IV ONE (13:30)
[2018-11-04 13:31] VITALS: BP 113/68
--- NOTE | 2018-11-04 13:32 | NUR ---
ED Nurse Note: PT LAYING PEACEFULLY IN BED IN NAD. AOX4. PRESCRIPTIONS AND DISCHARGE PAPERWORK EXPLAINED TO PT. PT VERBALIZES UNDERSTANDING AND ALL QUESTIONS ANSWERED. PRESCRIPTIONS AND DISCHARGE PAPERWORK GIVEN TO PT, IV AND ID WRISTBAND REMOVED. PT STATES PAIN IS TOLERABLE NOW. PT WALKED OUT OF ER WITH STEADY GAIT AND ALL BELONGINGS.
[2018-11-04] MEDS ORDERED: CEPHALEXIN500 MG ORAL (13:37)
--- NOTE | 2018-11-04 14:44 | Emergency Room Report ---
History of Present Illness General Chief Complaint: Abdominal Pain Source: Patient Present Illness HPI 32-year-old female presents ED for evaluation. Complaining of abdominal pain with nausea and vomiting. Started 3 days ago. Pain is epigastric, burning, 10 out of 10, nonradiating. States she has history of gastritis. Denies alcohol or drug use. Denies marijuana use. Denies any diarrhea. No other aggravating relieving factors. Denies any other associated symptoms Allergies: Coded Allergies: No Known Allergies (Unverified , 06/22/12) Patient History Past Medical History: GERD Past Surgical History: none Pertinent Family History: none Social History: Denies: smoking, alcohol use, drug use Now: No : 5 Immunizations: UTD Reviewed Nursing Documentation: PMH: Agreed; PSxH: Agreed Nursing Documentation-PMH Hx Gastrointestinal Problems: Yes - ACID REFLUX Review of Systems All Other Systems: negative except mentioned in HPI Physical Exam Vital Signs Date Time Temp Pulse Resp B/P (MAP) Pulse Ox O2 Delivery O2 Flow Rate FiO2 11/04/18 12:05 98.6 83 19 145/105 11/04/18 12:20 Room Air 11/04/18 12:20 99 Sp02 EP Interpretation: reviewed, normal General Appearance: no apparent distress, alert, GCS 15, non-toxic Head: normocephalic, atraumatic Eyes: bilateral eye normal inspection, bilateral eye PERRL ENT: hearing grossly normal, normal pharynx, no angioedema, normal voice Neck: full range of motion, supple/symm/no masses Respiratory: chest non-tender, lungs clear, normal breath sounds, speaking full sentences Cardiovascular #1: regular rate, rhythm, no edema Cardiovascular #2: 2+ carotid (R), 2+ carotid (L), 2+ radial (R), 2+ radial (L) , 2+ dorsalis pedis (R), 2+ dorsalis pedis (L) Gastrointestinal: normal bowel sounds, soft, non-distended, no guarding, no rebound, tenderness Rectal: deferred Genitourinary: normal inspection, no CVA tenderness Musculoskeletal: back normal, gait/station normal, normal range of motion, non- tender Neurologic: alert, oriented x3, responsive, motor strength/tone normal, sensory intact, speech normal Psychiatric: judgement/insight normal, memory normal, mood/affect normal, no suicidal/homicidal ideation Reflexes: 3+ bicep (R), 3+ bicep (L), 3+ tricep (R), 3+ tricep (L), 3+ knee (R) , 3+ knee (L) Skin: normal color, no rash, warm/dry, well hydrated Lymphatic: no adenopathy Medical Decision Making Diagnostic Impression: Primary Impression: Gastritis Qualified Codes: K29.00 - Acute gastritis without bleeding Additional Impression: UTI (lower urinary tract infection) ER Course Hospital Course 32-year-old F presents to ED with epigastric pain with N/V. differential diagnosis: gastritis, SBO, cholecystits Clinical course Patient placed on stretcher. 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 After initial history and physical I ordered labs, IV fluids, Zofran, GI cocktail, and pepcid Labs - no leukocytosis, no electrolyte abnormalities, LFTs normal, UA + bacteria Upon reassessment, patient states pain has improved. findings consistent with gastritis Discussed findings with patient. We'll discharged to home with antibiotics. Patient states she has a PMD. Safe for discharge close outpatient follow-up I feel this is a highly complex case requiring extensive working including EKG/ Rhythm strip, Xray/CT/US, Blood/urine lab work, repeat exams while in ED, and administration of strong opiates/narcotics for pain control, admission to hospital or close patient follow up. Diagnosis - gastritis, UTI Stable and discharged to home with prescriptions for Zantac, zofran, keflex, tylenol. Followup with PMD. Return to ED if symptoms recur or wors Labs Test 11/04/18 12:29 White Blood Count 6.1 K/UL (4.8-10.8) Red Blood Count 4.76 M/UL (4.20-5.40) Hemoglobin 14.4 G/DL (12.0-16.0) Hematocrit 44.7 % (37.0-47.0) Mean Corpuscular Volume 94 FL (80-99) Mean Corpuscular Hemoglobin 30.1 PG (27.0-31.0) Mean Corpuscular Hemoglobin Concent 32.1 G/DL (32.0-36.0) Red Cell Distribution Width 13.8 % (11.6-14.8) Platelet Count 328 K/UL (150-450) Mean Platelet Volume 5.4 FL (6.5-10.1) Neutrophils (%) (Auto) 58.1 % (45.0-75.0) Lymphocytes (%) (Auto) 32.3 % (20.0-45.0) Monocytes (%) (Auto) 6.6 % (1.0-10.0) Eosinophils (%) (Auto) 1.8 % (0.0-3.0) Basophils (%) (Auto) 1.2 % (0.0-2.0) Urine Color Yellow Urine Appearance Slightly cloudy Urine pH 5 (4.5-8.0) Urine Specific [place] 1.025 (1.005-1.035) Urine Protein 2+ (NEGATIVE) Urine Glucose (UA) Negative (NEGATIVE) Urine Ketones 3+ (NEGATIVE) Urine Blood 1+ (NEGATIVE) Urine Nitrite Negative (NEGATIVE) Urine Bilirubin 1+ (NEGATIVE) Urine Ictotest Negative (NEGATIVE) Urine Urobilinogen 4 MG/DL (0.0-1.0) Urine Leukocyte Esterase 3+ (NEGATIVE) Urine RBC 0-2 /HPF (0 - 2) Urine WBC 5-10 /HPF (0 - 2) Urine Squamous Epithelial Cells Many /LPF (NONE/OCC) Urine Bacteria Few /HPF (NONE) Urine HCG, Qualitative Negative (NEGATIVE) Sodium Level 136 MMOL/L (136-145) Potassium Level 3.3 MMOL/L (3.5-5.1) Chloride Level 98 MMOL/L (98-107) Carbon Dioxide Level 26 MMOL/L (21-32) Anion Gap 12 mmol/L (5-15) Blood Urea Nitrogen 9 mg/dL (7-18) Creatinine 0.8 MG/DL (0.55-1.30) Estimat Glomerular Filtration Rate > 60 mL/min (>60) Glucose Level 98 MG/DL (74-106) Calcium Level 9.6 MG/DL (8.5-10.1) Total Bilirubin 0.5 MG/DL (0.2-1.0) Aspartate Amino Transf (AST/SGOT) 19 U/L (15-37) Alanine Aminotransferase (ALT/SGPT) 37 U/L (12-78) Alkaline Phosphatase 66 U/L (46-116) Total Protein 7.9 G/DL (6.4-8.2) Albumin 4.0 G/DL (3.4-5.0) Globulin 3.9 g/dL Albumin/Globulin Ratio 1.0 (1.0-2.7) Lipase 54 U/L (73-393) Last Vital Signs Date Time Temp Pulse Resp B/P (MAP) Pulse Ox O2 Delivery O2 Flow Rate FiO2 11/04/18 13:31 98.3 74 15 113/68 98 Room Air Status: improved Disposition: HOME, SELF-CARE Condition: Stable Scripts Cephalexin* (KEFLEX*) 500 Mg Capsule 500 MG ORAL EVERY 6 HOURS for 7 Days, CAP Prov: Morteza Warren MD 11/04/18 Acetaminophen* (TYLENOL EXTRA STRENGTH*) 500 Mg Tablet 500 MG ORAL Q8H PRN for Prn Headache/Temp > 101, #30 TAB 0 Refills Prov: Morteza Warren MD 11/04/18 Ondansetron Odt* (ZOFRAN ODT*) 4 Mg Tab.rapdis 4 MG BC EVERY 6 HOURS PRN for Nausea & Vomiting, #10 TAB 0 Refills Prov: Morteza Warren MD 11/04/18 Ranitidine Hcl* (ZANTAC*) 150 Mg Tablet 150 MG ORAL TWICE A DAY, #30 TAB Prov: Morteza Warren MD 11/04/18 Referrals: [facility],REFERRING (PCP) [facility] Patient Instructions: Gastritis, Adult, [id number] Morteza Warren MD Nov 04, 2018 14:44
== END 2018-11-04 13:32 | disposition home or self-care (01) ==
LOC: EMR 12:42
DX: K29.70 Gastritis, unspecified, without bleeding (principal); N39.0 Urinary tract infection, site not specified; K21.9 Gastro-esophageal reflux disease without esophagitis
CPT/HCPCS: 36415; 80053; 81003; 81025; 83690; 85025; 96361; 96374; 96375; 99284; J1885; J2405; S0028

== ENCOUNTER 2019-04-25 22:37 | Emergency (ER) | payer MEDICAID ==
[~2019-04-25] VITALS: Ht 162.6 cm; Wt 81.6 kg
[~2019-04-25 22:37] MED LIST changes: +ONDANSETRON ODT4 MG BC; +RANITIDINE HCL150 MG ORAL; +TYLENOL EXTRA500 MG ORAL
--- NOTE | 2019-04-25 23:00 | NUR ---
ED Nurse Note: Recieved pt from home, awake, alert and oriented x 4, pt here with c/o bilat leg cramps and spasm for past 2 weeks and increasing in pain level, rated now at 8/10, pt also is 28 weeks with twins, no bleeding or other disocomforts, pt assisted to gowning and urine collected and sent, will resume care as ordered and closely monitor.
--- NOTE | 2019-04-25 23:20 | NUR ---
ED Nurse Note: Garry BONILLA with pt ultrasound done at bedside, pt tolerated well, fetus noted.
--- NOTE | 2019-04-25 23:45 | NUR ---
ED Nurse Note: Pt transferred to bed 2 for cardiac monitoring, report given to DEEPA Mckee.
--- NOTE | 2019-04-25 23:58 | NUR ---
ED Nurse Note: Got this patient from FT. Patient is here due to crumps in both legs. Stated that 28 weeks preagnant with twins. AAO x4, VSS at this time, skin is dry warm to touch.
[2019-04-26] VITALS: BP 121/72
[2019-04-26 00:06] LABS: BASOPHILS % (AUTO) 0.7 % (0.0-2.0); HEMATOCRIT 34.3 % (37.0-47.0); HEMOGLOBIN 11.6 G/DL (12.0-16.0); LYMPHOCYTES % (AUTO) 30.8 % (20.0-45.0); MEAN CORPUSCULAR VOLUME 90 FL (80-99); MONOCYTES % (AUTO) 7.2 % (1.0-10.0); NEUTROPHILS % (AUTO) 58.3 % (45.0-75.0); PLATELET COUNT 240 K/UL (150-450); RED CELL DISTRIBUTION WIDTH 12.8 % (11.6-14.8); WHITE BLOOD COUNT 7.7 K/UL (4.8-10.8)
[2019-04-26 00:16] LABS: ANION GAP 10 mmol/L (5-15); BLOOD UREA NITROGEN 5 mg/dL (7-18); CALCIUM 9.1 MG/DL (8.5-10.1); CARBON DIOXIDE 25 MMOL/L (21-32); CHLORIDE 106 MMOL/L (98-107); CREATININE 0.5 MG/DL (0.55-1.30); POTASSIUM 3.5 MMOL/L (3.5-5.1); SODIUM 141 MMOL/L (136-145)
[2019-04-26 00:21] LABS: ALANINE AMINOTRANSFERASE 17 U/L (12-78); ALBUMIN 2.6 G/DL (3.4-5.0); ALBUMIN/GLOBULIN RATIO 0.6 (1.0-2.7); ALKALINE PHOSPHATASE 62 U/L (46-116); ASPARTATE AMINO TRANSFERASE 20 U/L (15-37); BILIRUBIN,TOTAL 0.2 MG/DL (0.2-1.0)
[2019-04-26 00:58] VITALS: BP 121/72
--- NOTE | 2019-04-26 00:59 | NUR ---
ER DISCHARGE NOTE: Patient is cleared to be discharged per ERMD, pt is aox4, on room air, with stable vital signs. pt was given dc and prescription instructions, pt was able to verbalize understanding, pt id band and iv site removed without complications. pt is able to ambulate with steady gait. pt took all belongings.
--- NOTE | 2019-04-26 21:22 | Emergency Room Report ---
History of Present Illness General Chief Complaint: Pain Present Illness HPI Patient is a 33 year old femal presented for bilateral lower extremity cramps. Patient reports being greater than 20 weeks . intermittent cramps to both legs. Allergies: Coded Allergies: No Known Allergies (Unverified , 06/22/12) Patient History Last Menstrual Period: 28 wks ago Now: Yes : 4 Para: 3 Nursing Documentation-PMH Hx Gastrointestinal Problems: Yes - ACID REFLUX Physical Exam Vital Signs Date Time Temp Pulse Resp B/P (MAP) Pulse Ox O2 Delivery O2 Flow Rate FiO2 04/25/19 22:39 98.1 97 16 110/69 (83) 98 Room Air General Appearance: well appearing, no apparent distress Head: normocephalic, atraumatic ENT: hearing grossly normal, normal voice Neck: full range of motion, supple Respiratory: lungs clear, normal breath sounds, no respiratory distress, speaking full sentences Cardiovascular #1: normal inspection Gastrointestinal: normal inspection, soft, other - gravid uterus Musculoskeletal: normal inspection, back normal, digits/nails normal, gait/ station normal, normal range of motion, no calf tenderness Neurologic: normal inspection, alert, oriented x3, 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 Labs were unremarkable. Bedside ultrasound showed twin gestations side by side with adequate FHR. Patient given IV fluids and magnesium. No signs or symptoms of preeclampsia. No sign of labor or complications. Both calves without swelling, negative chau's. Patient advised to follow up with Dr. Leija. Labs Test 04/25/19 23:40 White Blood Count 7.7 K/UL (4.8-10.8) Red Blood Count 3.80 M/UL (4.20-5.40) Hemoglobin 11.6 G/DL (12.0-16.0) Hematocrit 34.3 % (37.0-47.0) Mean Corpuscular Volume 90 FL (80-99) Mean Corpuscular Hemoglobin 30.4 PG (27.0-31.0) Mean Corpuscular Hemoglobin Concent 33.7 G/DL (32.0-36.0) Red Cell Distribution Width 12.8 % (11.6-14.8) Platelet Count 240 K/UL (150-450) Mean Platelet Volume 5.4 FL (6.5-10.1) Neutrophils (%) (Auto) 58.3 % (45.0-75.0) Lymphocytes (%) (Auto) 30.8 % (20.0-45.0) Monocytes (%) (Auto) 7.2 % (1.0-10.0) Eosinophils (%) (Auto) 3.0 % (0.0-3.0) Basophils (%) (Auto) 0.7 % (0.0-2.0) Sodium Level 141 MMOL/L (136-145) Potassium Level 3.5 MMOL/L (3.5-5.1) Chloride Level 106 MMOL/L (98-107) Carbon Dioxide Level 25 MMOL/L (21-32) Anion Gap 10 mmol/L (5-15) Blood Urea Nitrogen 5 mg/dL (7-18) Creatinine 0.5 MG/DL (0.55-1.30) Estimat Glomerular Filtration Rate > 60 mL/min (>60) Glucose Level 97 MG/DL (74-106) Calcium Level 9.1 MG/DL (8.5-10.1) Magnesium Level 1.7 MG/DL (1.8-2.4) Total Bilirubin 0.2 MG/DL (0.2-1.0) Aspartate Amino Transf (AST/SGOT) 20 U/L (15-37) Alanine Aminotransferase (ALT/SGPT) 17 U/L (12-78) Alkaline Phosphatase 62 U/L (46-116) Total Protein 6.7 G/DL (6.4-8.2) Albumin 2.6 G/DL (3.4-5.0) Globulin 4.1 g/dL Albumin/Globulin Ratio 0.6 (1.0-2.7) Last Vital Signs Date Time Temp Pulse Resp B/P (MAP) Pulse Ox O2 Delivery O2 Flow Rate FiO2 04/26/19 00:58 98.5 81 19 121/72 99 Room Air Status: improved Disposition: HOME, SELF-CARE Condition: Stable Referrals: NOT CHOSEN [facility]/MD,REFERRING Patient Instructions: Muscle Cramps and Spasms Additional Instructions: Follow up with Dr. Leija for recheck. Follow up with a labor and delivery unit if any problems with . Michael Rosales MD Apr 26, 2019 21:22
== END 2019-04-26 00:58 | disposition home or self-care (01) ==
LOC: EMR 22:50
DX: O26.892 Other specified pregnancy related conditions, second trimester (principal); R25.2 Cramp and spasm; Z3A.20 20 weeks gestation of pregnancy
CPT/HCPCS: 36415; 80053; 83735; 85025; 96365; 99284

== ENCOUNTER 2019-08-09 19:43 | Emergency (ER) | payer MEDICAID ==
[~2019-08-09] VITALS: Ht 165.1 cm; Wt 80.3 kg
--- NOTE | 2019-08-09 20:00 | NUR ---
ED Nurse Note: Patient walked into ED c/o pain located on her incision site, states that 1 month ago she had a and comlains of pain that started 2 days ago however came to ED due to increasing pain on the site accompanied by vomiting. reports of white discharge. ao4 nad vss. changed to gown; attached to monitor. iv access established. blood and urine collected; sent down to lab.
[2019-08-09 20:18] VITALS: BP 141/95
[2019-08-09] MEDS ORDERED: Lidocaine 2% Visc 15ml soln ORAL ONE (20:45)
[2019-08-09] MEDS ORDERED: Dicyclomine HCl 10mg/5ml oral soln ORAL ONE (20:45)
[2019-08-09] MEDS ORDERED: COLACE100 MG ORAL ×3 (21:44→21:50)
[2019-08-09] MEDS ORDERED: DICYCLOMINE HCL20 M1 PO ×3 (21:44→21:50)
--- NOTE | 2019-08-09 21:44 | Diagnostic Imaging Report ---
EXAM: XR Abdomen, 2 Views CLINICAL HISTORY: PAIN TECHNIQUE: Frontal view of the abdomen/pelvis with upright view of the abdomen. COMPARISON: No relevant prior studies available. FINDINGS: Intraperitoneal space: No free air. Gastrointestinal tract: Copious stool in the right colon. No dilation. Bones/joints: No acute fracture. No dislocation. IMPRESSION: No acute findings.
[2019-08-09] MEDS ORDERED: Ketorolac 30mg Inj IV ONE (21:45)
[2019-08-09 21:55] VITALS: BP 141/95
--- NOTE | 2019-08-10 13:55 | Emergency Room Report ---
History of Present Illness General Chief Complaint: General Complaint Source: Patient Present Illness HPI Patient is a 33-year-old female who presents after increased abdominal pain. Patient had to have a prior history of similar type pain in the past. Patient had a recent . She reports having some pain to the incision site. She denies any dysuria. She denies breast-feeding. She denies any shortness of breath. Allergies: Coded Allergies: No Known Allergies (Unverified , 06/22/12) Patient History Past Medical History: see triage record Last Menstrual Period: 08/26/18 Now: No : 6 Para: 4 Reviewed Nursing Documentation: PMH: Agreed; PSxH: Agreed Nursing Documentation-PMH Past Medical History: No History, Except For Hx Gastrointestinal Problems: Yes - ACID REFLUX Review of Systems All Other Systems: negative except mentioned in HPI Physical Exam Vital Signs Date Time Temp Pulse Resp B/P (MAP) Pulse Ox O2 Delivery O2 Flow Rate FiO2 08/09/19 19:48 99.3 96 18 141/95 (110) 95 Room Air General Appearance: well appearing, no apparent distress, alert, GCS 15 Head: normocephalic, atraumatic ENT: hearing grossly normal, normal voice Neck: full range of motion, supple Respiratory: lungs clear, no respiratory distress, speaking full sentences Cardiovascular #1: normal inspection Gastrointestinal: normal inspection, non tender Musculoskeletal: normal inspection, no calf tenderness Neurologic: alert, motor strength/tone normal, normal gait Psychiatric: mood/affect normal Skin: no rash Medical Decision Making Diagnostic Impression: Primary Impression: Nonspecific abdominal pain ER Course Patient presented for abdominal pain. Differential diagnoses included ischemic bowel, appendicitis, perforated viscus, abdominal aortic aneurysm, inferior myocardial infarction, viral gastroenteritis among others.Because patient's complexity imaging studies, patient's KUB appear to be normal. Patient does not appear to have any evidence of acute abdominal pathology. Patient appears to be stable for close outpatient follow up. Patient given prescription for pain medications. 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 Patient was advised to return if worse. The patient is advised to follow up with primary care doctor in 1-2 days. Patient is advised to return if any worsening condition or if any changes in status that are concerning. This report is dictated with [employer] el teacher software which may occasionally lead to discrepancies related to use of this software. Last Vital Signs Date Time Temp Pulse Resp B/P (MAP) Pulse Ox O2 Delivery O2 Flow Rate FiO2 08/09/19 21:55 99.3 84 18 141/95 95 Room Air Status: improved Disposition: HOME, SELF-CARE Condition: Stable Scripts Docusate Sodium* (COLACE*) 100 Mg Capsule 100 MG ORAL TWICE A DAY, #20 CAP Prov: Michael Rosales MD 08/09/19 Dicyclomine Hcl (DICYCLOMINE HCL) 20 Mg Tablet 20 MG PO EVERY 6 HOURS, #20 TAB Prov: Michael Rosales MD 08/09/19 Referrals: [facility],REFERRING (PCP) Patient Instructions: Abdominal Pain, Adult Additional Instructions: Follow up with your doctor for recheck. Return for persistent vomiting or other concerns. Michael Rosales MD Aug 10, 2019 13:55
== END 2019-08-09 21:56 | disposition home or self-care (01) ==
LOC: EMR 21:55
DX: R10.9 Unspecified abdominal pain (principal); K21.9 Gastro-esophageal reflux disease without esophagitis
CPT/HCPCS: 74018; 96374; J1885; Z7502; 99284

== ENCOUNTER 2019-10-22 17:58 | Emergency (ER) | payer MEDICAID ==
[~2019-10-22] VITALS: Ht 165.1 cm; Wt 73.9 kg
[~2019-10-22 17:58] MED LIST changes: +DICYCLOMINE HCL20 M1 PO
[2019-10-22 18:16] VITALS: BP 136/95
[2019-10-22] MEDS ORDERED: Methocarbamol 750mg tab ORAL ONE (18:45)
[2019-10-22] MEDS ORDERED: Ketorolac 30mg Inj IM ONE (18:45)
--- NOTE | 2019-10-22 19:05 | Emergency Room Report ---
History of Present Illness General Chief Complaint: Pain Source: Patient Present Illness HPI 33-year-old female with no significant past medical history here complaining of 2 days of right sided posterior rib thoracic pain without any fall or injury. Also reports that the pain radiates to mid epigastric however not the other way around. Denies any nausea vomiting diarrhea and constipation. Denies fever and chills, recent travel. Rates the pain 10 out of 10 especially worse at night. Patient reports that she has a set of twins as well as a 35 pound 2-year -old who she often carries. Has been taking Motrin with minimal relief. No bony tenderness noted. Has full range of motion. Denies tingling and numbness. Denies all other injuries. Denies chest pain and shortness of breath. Denies Allergies: Coded Allergies: No Known Allergies (Unverified , 06/22/12) Patient History Past Medical History: see triage record Past Surgical History: none Pertinent Family History: none Now: No Immunizations: UTD Reviewed Nursing Documentation: PMH: Agreed; PSxH: Agreed Nursing Documentation-PMH Past Medical History: No Stated History Hx Gastrointestinal Problems: Yes - ACID REFLUX Review of Systems All Other Systems: negative except mentioned in HPI Physical Exam Vital Signs Date Time Temp Pulse Resp B/P (MAP) Pulse Ox O2 Delivery O2 Flow Rate FiO2 10/22/19 18:16 98.1 80 18 136/95 (109) 99 Room Air Sp02 EP Interpretation: reviewed, normal General Appearance: no apparent distress, alert, GCS 15, non-toxic Head: normocephalic, atraumatic Eyes: bilateral eye normal inspection, bilateral eye PERRL ENT: hearing grossly normal, normal pharynx, no angioedema, normal voice Neck: full range of motion, supple, thyroid normal, no meningismus, no bony tend, no carotid bruits, supple/symm/no masses Respiratory: chest non-tender, lungs clear, normal breath sounds, no rhonchi, no wheezing, speaking full sentences Cardiovascular #1: regular rate, rhythm, no edema, no murmur, normal capillary refill Cardiovascular #2: 2+ carotid (R), 2+ carotid (L), 2+ radial (R), 2+ radial (L) Gastrointestinal: normal bowel sounds, non tender, soft, non-distended, no guarding, no rebound Rectal: deferred Genitourinary: no CVA tenderness Musculoskeletal: back normal, normal range of motion, digits/nails normal, no calf tenderness, pelvis stable, non-tender Neurologic: alert, motor strength/tone normal, oriented x3, sensory intact, responsive, speech normal Psychiatric: judgement/insight normal, memory normal, mood/affect normal, no suicidal/homicidal ideation Skin: no rash Lymphatic: no adenopathy Medical Decision Making PA Attestation All my diagnosis and treatment plans were reviewed ad discussed with my supervising physician Dr. Warren Diagnostic Impression: Primary Impression: Thoracic myofascial strain Additional Impression: UTI (lower urinary tract infection) ER Course 33-year-old female with no significant past medical history here complaining of 2 days of right sided posterior rib thoracic pain without any fall or injury. Also reports that the pain radiates to mid epigastric however not the other way around. Denies any nausea vomiting diarrhea and constipation. Denies fever and chills, recent travel. Rates the pain 10 out of 10 especially worse at night. Patient reports that she has a set of twins as well as a 35 pound 2-year -old who she often carries. Has been taking Motrin with minimal relief. No bony tenderness noted. Has full range of motion. Denies tingling and numbness. Denies all other injuries. Denies chest pain and shortness of breath. Denies Ddx considered but are not limited to : thoracic spine fracture, thoracic spine strain, thoracic spine sprain, radiculopathy. Vital signs: are WNL, pt. is afebrile H&PE are most consistent with: thoracic strain, incidental finding of UTI ORDERS: UA, urine test, no x-ray necessary at this time as there is no point tenderness and there was no fall or injury. Flexeril as patient wanted medical records assistant with sleeping, Motrin, lidocaine patch, Macrobid ED INTERVENTIONS: Toradol IM, Robaxin DISCHARGE: At this time pt. is stable for d/c to home. Will provide printed patient care instructions, and any necessary prescriptions. Care plan and follow up instructions have been discussed with the patient prior to discharge. Avoid strenuous physical activity with affected side, follow-up with primary care provider, take medication as directed, if worsening symptoms return to the emergency room Last Vital Signs Date Time Temp Pulse Resp B/P (MAP) Pulse Ox O2 Delivery O2 Flow Rate FiO2 10/22/19 18:16 98.1 80 18 136/95 99 Room Air Disposition: HOME, SELF-CARE Condition: Stable Scripts Lidocaine Patch* (Lidoderm Patch*) 1 Each Adh..patch 1 PATCH TOPIC DAILY, #30 PATCH Patch(es) may remain in place for up to 12 hours in any 24-hour period. Prov: Bear Ken 10/22/19 Cyclobenzaprine Hcl* (FLEXERIL*) 10 Mg Tablet 10 MG ORAL THREE TIMES A DAY, #14 TAB Prov: Bear Ken 10/22/19 Ibuprofen* (MOTRIN*) 600 Mg Tablet 600 MG ORAL THREE TIMES A DAY, #30 TAB 0 Refills Prov: Bear Ken 10/22/19 Nitrofurantoin Monohyd/M-Cryst* (MACROBID 100 MG*) 100 Mg Capsule 100 MG ORAL EVERY 12 HOURS for 7 Days, CAP Prov: Bear Ken 10/22/19 Patient Instructions: Thoracic Strain, [id number], Urinary Tract Infection, [id number] Additional Instructions: Avoid strenuous physical activity, take medication as directed, follow with your primary care provider, increase oral hydration, if worsening symptoms return to emergency room Bear Ken Oct 22, 2019 19:05
[2019-10-22 19:27] LABS: BILIRUBIN, URINE NEGATIVE (NEGATIVE); COLOR,URINE PALE YELLOW; GLUCOSE, URINE (UA) NEGATIVE (NEGATIVE); KETONES,URINE NEGATIVE (NEGATIVE); LEUKOCYTE ESTERASE ,URINE 2+ (NEGATIVE); NITRITE,URINE NEGATIVE (NEGATIVE); PH,URINE 6 (4.5-8.0); PROTEIN,URINE NEGATIVE (NEGATIVE); UROBILINOGEN,URINE NORMAL MG/DL (0.0-1.0)
[2019-10-22 19:28] LABS: APPEARANCE,URINE SLIGHTLY CLOUDY
[2019-10-22] MEDS ORDERED: LIDODERM700 M1 TOPIC (19:46)
[2019-10-22] MEDS ORDERED: CYCLOBENZAPRINE10 MG ORAL (19:46)
[2019-10-22] MEDS ORDERED: NITROFURANTOIN100 M2 ORAL (19:46)
[2019-10-22] MEDS ORDERED: IBUPROFEN600 MG ORAL (19:46)
[2019-10-22 19:50] VITALS: BP 128/94
== END 2019-10-22 19:50 | disposition home or self-care (01) ==
LOC: EMR 19:43
DX: S29.019A Strain of muscle and tendon of unspecified wall of thorax, initial encounter (principal); X58.XXXA Exposure to other specified factors, initial encounter; N39.0 Urinary tract infection, site not specified; K21.9 Gastro-esophageal reflux disease without esophagitis
CPT/HCPCS: 81003; 81025; 87086; 96372; J1885; Z7502; 99283

== ENCOUNTER 2020-06-05 10:17 | Emergency (ER) | payer MEDICAID, OTHER ==
[~2020-06-05] VITALS: Ht 165.1 cm; Wt 68.0 kg
[~2020-06-05 10:17] MED LIST changes: +CYCLOBENZAPRINE10 MG ORAL; +LIDODERM700 M1 TOPIC
[2020-06-05 10:36] VITALS: BP 124/84
--- NOTE | 2020-06-05 10:37 | NUR ---
ED Nurse Note: Pt ambulated to ED from home d/t sore throat accompanied with headache and bodyache that started this morning. Pt is AOx4, calm and cooperative to care, VSS, on RA, Afebrile on triage. Placed on RME.
[2020-06-05] MEDS ORDERED: TYLENOL EXTRA500 MG ORAL (10:55)
[2020-06-05] MEDS ORDERED: AMOXICILLIN500 MG ORAL (10:55)
[2020-06-05 11:01] VITALS: BP 122/81
--- NOTE | 2020-06-05 11:01 | NUR ---
ER DISCHARGE NOTE: Patient is cleared to be discharged per ERMD, pt is aox4, on room air, with stable vital signs. pt was given dc and prescription instructions, pt was able to verbalize understanding, pt id band removed. pt is able to ambulate with steady gait. pt took all belongings.
--- NOTE | 2020-06-06 07:25 | Emergency Room Report ---
History of Present Illness General Chief Complaint: Sore Throat Source: Patient Present Illness HPI 34-year-old female presents the ED complaining of sore throat. Started yesterday. Describes pain as burning, 7 out of 10, nonradiating. Notes generalized body aches. Afebrile in triage. Denies cough. Denies sick contacts or recent travel. No other aggravating relieving factors. 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 Patient History Past Medical History: GERD Past Surgical History: none Pertinent Family History: none Social History: Denies: smoking, alcohol use, drug use Last Menstrual Period: currently on her period Now: No Immunizations: UTD Reviewed Nursing Documentation: PMH: Agreed; PSxH: Agreed Nursing Documentation-PMH Past Medical History: No Stated History Hx Gastrointestinal Problems: Yes - ACID REFLUX Review of Systems All Other Systems: negative except mentioned in HPI Physical Exam Vital Signs Date Time Temp Pulse Resp B/P (MAP) Pulse Ox O2 Delivery O2 Flow Rate FiO2 06/05/20 10:25 98.4 74 15 124/84 (97) 96 Room Air Sp02 EP Interpretation: reviewed, normal General Appearance: no apparent distress, alert, GCS 15, non-toxic Head: normocephalic, atraumatic Eyes: bilateral eye normal inspection, bilateral eye PERRL ENT: hearing grossly normal, no angioedema, normal voice, pharyngeal erythema Neck: full range of motion, supple/symm/no masses Respiratory: chest non-tender, lungs clear, normal breath sounds, speaking full sentences Cardiovascular #1: regular rate, rhythm, no edema Cardiovascular #2: 2+ carotid (R), 2+ carotid (L), 2+ radial (R), 2+ radial (L), 2+ dorsalis pedis (R), 2+ dorsalis pedis (L) Gastrointestinal: normal bowel sounds, non tender, soft, non-distended, no guarding, no rebound Rectal: deferred Genitourinary: normal inspection, no CVA tenderness Musculoskeletal: back normal, normal range of motion, gait/station normal, non- tender Neurologic: alert, motor strength/tone normal, oriented x3, sensory intact, responsive, speech normal Psychiatric: judgement/insight normal, memory normal, mood/affect normal, no suicidal/homicidal ideation Reflexes: 3+ bicep (R), 3+ bicep (L), 3+ tricep (R), 3+ tricep (L), 3+ knee (R), 3+ knee (L) Skin: no rash Lymphatic: no adenopathy Medical Decision Making Diagnostic Impression: Primary Impression: Pharyngitis Qualified Codes: J02.9 - Acute pharyngitis, unspecified ER Course Hospital Course 34-year-old female presents to ED complaining of sore throat Differential diagnoses include: URI, pharyngitis, otitis media Clinical course Patient placed on stretcher. After initial history, physical exam reveals a female in no acute distress. Bilateral TM unremarkable. There is pharyngeal erythema. No lymphadenopathy. Clinical findings consistent with pharyngitis. I discussed findings with patient. Safe for discharge with close outpatient follow-up. States she has a PMD. Diagnosis - pharyngitis Stable and discharged home with prescriptions for Tylenol, amoxicillin. Instructed to followup with PMD. return to ED if symptoms recur or worsen Last Vital Signs Date Time Temp Pulse Resp B/P (MAP) Pulse Ox O2 Delivery O2 Flow Rate FiO2 06/05/20 11:01 98.4 78 16 122/81 99 Room Air Status: improved Disposition: HOME, SELF-CARE Condition: Stable Scripts Acetaminophen* (TYLENOL EXTRA STRENGTH*) 500 Mg Tablet 500 MG ORAL Q8H PRN for Prn Headache/Temp > 101, #30 TAB 0 Refills Prov: Morteza Warren MD 06/05/20 Amoxicillin* (AMOXIL*) 500 Mg Capsule 500 MG ORAL THREE TIMES A DAY, #21 CAP Prov: Morteza Warren MD 06/05/20 Referrals: NON PHYSICIAN (PCP) Departure Forms: Return to Work Return to Work Date: Jun 08, 2020 Work Restrictions: None Patient Instructions: Pharyngitis, [id number] Morteza Warren MD Jun 06, 2020 07:25
== END 2020-06-05 11:01 | disposition home or self-care (01) ==
LOC: EMR 10:35
DX: J02.9 Acute pharyngitis, unspecified (principal); K21.9 Gastro-esophageal reflux disease without esophagitis
CPT/HCPCS: 99282

== ENCOUNTER 2020-08-21 10:18 | Emergency (ER) | payer MEDICAID ==
[~2020-08-21] VITALS: Ht 165.1 cm; Wt 76.2 kg
[~2020-08-21 10:18] MED LIST changes: +AMOXICILLIN500 MG ORAL
--- NOTE | 2020-08-21 10:37 | NUR ---
ED Nurse Note: pt presents to ED c/o body aches, CHAVIRA and fevers/chills x 1 day. 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 pt denies SOB or cough, does note that she has a sore throat, has been taking nyquil without much relief of body aches. pt is noted to be febrile upon triage
[2020-08-21 10:38] VITALS: BP 132/76
[2020-08-21] MEDS ORDERED: TYLENOL EXTRA500 MG ORAL (11:11)
[2020-08-21 11:20] VITALS: BP 132/76
--- NOTE | 2020-08-21 11:20 | NUR ---
ER DISCHARGE NOTE: Patient is cleared to be discharged per ERMD, pt is aox4, on room air, with stable vital signs. pt was given dc and prescription instructions, pt was able to verbalize understanding, pt id band without complications. pt is able to ambulate with steady gait. pt took all belongings.
--- NOTE | 2020-08-21 11:32 | Emergency Room Report ---
History of Present Illness General Chief Complaint: Flu Like Symptoms Present Illness HPI Disclaimer: Please note that this report is being documented using [employer] technology. This can lead to erroneous entry secondary to incorrect interpretation by the dictating instrument. HPI: 34-year-old female no reported past medical history presents from home with body aches fever and chills. She states symptoms have been present for the past 2 days. 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 She also complains of occasional diarrhea sore throat and occasional cough. No vomiting. 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 COVID-19 Screening: Negative COVID-19 COVID-19 Testing Source: last month Nursing Documentation-PMH Hx Gastrointestinal Problems: Yes - ACID REFLUX Review of Systems All Other Systems: negative except mentioned in HPI Physical Exam Vital Signs Date Time Temp Pulse Resp B/P (MAP) Pulse Ox O2 Delivery O2 Flow Rate FiO2 08/21/20 10:31 100.8 105 19 132/76 (94) 98 Room Air Sp02 EP Interpretation: reviewed, normal General Appearance: well appearing, no apparent distress Head: normocephalic, atraumatic Eyes: bilateral eye PERRL, bilateral eye EOMI ENT: hearing grossly normal, moist mucus membranes, other - No erythema or exudates noted Neck: full range of motion, supple Respiratory: lungs clear, normal breath sounds, no rhonchi, no respiratory distress, no retraction, no wheezing Cardiovascular #1: normal peripheral pulses, no murmur, tachycardia Gastrointestinal: non tender, soft, non-distended, no guarding Neurologic: alert, oriented x3, no focal defects Skin: normal color, warm/dry Medical Decision Making Diagnostic Impression: Primary Impression: Viral syndrome ER Course Patient presents with flulike symptoms. She was febrile on arrival. Tylenol given. Differential included but not limited to viral syndrome, COVID-19, did consider pharyngitis. Patient has positive sick contacts as she works in the hospital. Her symptoms were most consistent with either flulike syndrome or COVID-19. But she was not hypoxic she was in no distress stable for discharge home. Instructed to home quarantine. She was given outpatient testing resources. Discharged with Tylenol as well. Return precautions given. Stable for discharge. Last Vital Signs Date Time Temp Pulse Resp B/P (MAP) Pulse Ox O2 Delivery O2 Flow Rate FiO2 08/21/20 11:20 100.8 97 19 132/76 98 Room Air Disposition: HOME, SELF-CARE Condition: Stable Scripts Acetaminophen* (TYLENOL EXTRA STRENGTH*) 500 Mg Tablet 500 MG ORAL Q8H PRN for Prn Headache/Temp > 101, #30 TAB 0 Refills Prov: Jason Mcnulty M.D. 08/21/20 Departure Forms: Return to Work Return to Work in (Days): 8 Return to Work Date: Aug 29, 2020 Patient Instructions: Viral Respiratory Infection Additional Instructions: We are treating you for presumed covid-19. Please stay at home until you have not had a fever for 24 hours without the use of antifever medications, other symptoms have improved, and 10 days have passed since the onset of your initial symptoms. Please do not leave your home during this time except to seek urgent medical care. All of your close contacts should be quarantined at home at least 14 days since last contact with yourself. Please visit the following website to arrange outpatient testing through [facility] for free [email or web address] Jason Mcnulty M.D. Aug 21, 2020 11:32
== END 2020-08-21 11:20 | disposition home or self-care (01) ==
LOC: EMR 10:36
DX: B34.9 Viral infection, unspecified (principal); R50.9 Fever, unspecified; Z20.828 Contact with and (suspected) exposure to other viral communicable diseases; K21.9 Gastro-esophageal reflux disease without esophagitis
CPT/HCPCS: 99282

== ENCOUNTER 2020-11-12 18:21 | Emergency (ER) | payer MEDICAID ==
[~2020-11-12] VITALS: Ht 170.2 cm; Wt 75.7 kg
[2020-11-12 18:35] VITALS: BP 107/68
[2020-11-12 18:47] LABS: APPEARANCE,URINE SLIGHTLY CLOUDY; BILIRUBIN, URINE NEGATIVE (NEGATIVE); GLUCOSE, URINE (UA) NEGATIVE (NEGATIVE); KETONES,URINE 1+ (NEGATIVE); NITRITE,URINE NEGATIVE (NEGATIVE); PH,URINE 7 (4.5-8.0); PROTEIN,URINE 1+ (NEGATIVE); UROBILINOGEN,URINE NORMAL MG/DL (0.0-1.0)
[2020-11-12 19:11] LABS: COLOR,URINE YELLOW
[2020-11-12 19:12] LABS: LEUKOCYTE ESTERASE ,URINE 1+ (NEGATIVE)
[2020-11-12] MEDS: Ketorolac 30mg Inj IM ONE (19:29)
--- NOTE | 2020-11-12 19:35 | Emergency Room Report ---
History of Present Illness General Chief Complaint: General Complaint Source: Patient Present Illness HPI 34-year-old female who is G3, here complaining of 2 days of lower abdominal pain without any vaginal bleeding or spotting. Also reports that 1 day ago she was nauseated and vomited once without any bloody emesis. Reports that she is not currently taking any control. Is sexually active with the same partner, denies any vaginal discharge or urinary frequency urgency. Patient reports that her last regular menstrual. Was on October 21, 2020 and was sexually active with in October 27. Patient in no distress presents fever and chills, chest pain, shortness of breath, headache and dizziness. Has not follow-up with finance business partner. Patient has twins. 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 Patient History Past Medical History: see triage record Past Surgical History: none Pertinent Family History: none Now: No Immunizations: UTD Reviewed Nursing Documentation: PMH: Agreed; PSxH: Agreed Nursing Documentation-PMH Past Medical History: No Stated History Hx Gastrointestinal Problems: Yes - ACID REFLUX Review of Systems All Other Systems: negative except mentioned in HPI Physical Exam Vital Signs Date Time Temp Pulse Resp B/P (MAP) Pulse Ox O2 Delivery O2 Flow Rate FiO2 11/12/20 18:31 98.4 78 18 107/68 (81) 97 Sp02 EP Interpretation: reviewed, normal General Appearance: no apparent distress, alert, GCS 15, non-toxic Head: normocephalic, atraumatic Eyes: bilateral eye normal inspection, bilateral eye PERRL ENT: hearing grossly normal, normal pharynx, no angioedema, normal voice Respiratory: no respiratory distress, no retraction, no accessory muscle use Cardiovascular #1: regular rate, rhythm Gastrointestinal: non tender, soft, no mass, no organomegaly, no peritonitis, no bruit, non-distended, no guarding, no hernia, no pulsatile mass, no rebound Genitourinary: no CVA tenderness Musculoskeletal: back normal Neurologic: alert, motor strength/tone normal, oriented x3, sensory intact, responsive, speech normal Psychiatric: judgement/insight normal, memory normal, mood/affect normal, no suicidal/homicidal ideation Skin: no rash Lymphatic: no adenopathy Medical Decision Making PA Attestation All diagnoses and treatment plans were reviewed and discussed with my supervising physician Dr. Kruse Diagnostic Impression: Primary Impression: Menstrual cramps ER Course 34-year-old female who is G3, here complaining of 2 days of lower abdominal pain without any vaginal bleeding or spotting. Also reports that 1 day ago she was nauseated and vomited once without any bloody emesis. Reports that she is not currently taking any control. Is sexually active with the same partner, denies any vaginal discharge or urinary frequency urgency. Patient reports that her last regular menstrual. Was on October 21, 2020 and was sexually active with in October 27-. Patient in no distress presents fever and chills, chest pain, shortness of breath, headache and dizziness. Has not follow-up with finance business partner. Patient has twins. Ddx considered but not Limited to: Dysmenorrhea, dysfunctional uterine bleeding, ectopic , intrauterine , miscarriage threatened, spontaneous , UTI, pyelonephritis, urinary incontinence, prolapsed bladder At this time imaging needed patient had pain and bilateral suprapubic, negative McBurney's Rovsing's. Patient also deferred ultrasound at this time Vital signs: are WNL, pt. is afebrile H&PE are most consistent with: Menstrual cramps ORDERS: UA, urine cx, Ibuprofen, Lidocaine patch ED INTERVENTIONS: Toradol was administered after it was completed patient is not via urine . Patient to repeat her test in 7 days since ovulation (October 27) patient to avoid alcohol at this Patient was advised to repeat UA in 7 days at this time since patient has been sexually active since patient not at this time need to be repeated in 7 days DISCHARGE: At this time pt. is stable for d/c to home. Will provide printed gerard ent care instructions, and any necessary prescriptions. Care plan and follow up instructions have been discussed with the patient prior to discharge. Patient asked to follow-up with finance business partner, resources were provided Last Vital Signs Date Time Temp Pulse Resp B/P (MAP) Pulse Ox O2 Delivery O2 Flow Rate FiO2 11/12/20 18:35 98.4 18 107/68 97 11/12/20 18:35 78 Disposition: HOME, SELF-CARE Condition: Stable Scripts Lidocaine Patch* (Lidoderm Patch*) 1 Each Adh..patch 1 PATCH TOPIC DAILY, #30 PATCH Patch(es) may remain in place for up to 12 hours in any 24-hour period. Prov: Bear Ken 11/12/20 Ibuprofen (Ibuprofen) 800 Mg Tablet 800 MG PO TID, #30 TAB Prov: Bear Ken 11/12/20 [facility],REFERRING (PCP) Patient Instructions: Dysmenorrhea, [id number] Additional Instructions: Take medication as directed, follow-up with primary care provider, FINANCIAL DIRECTOR, if worsening symptoms return to the emergency room Bear Ken Nov 12, 2020 19:35
[2020-11-12] MEDS ORDERED: LIDODERM700 M1 TOPIC (19:37)
[2020-11-12] MEDS ORDERED: IBUPROFEN800 M1 PO (19:37)
--- NOTE | 2020-11-12 19:43 | NUR ---
ER DISCHARGE NOTE: Patient is cleared to be discharged per ERMD, pt is aox4, on room air, with stable vital signs. pt was given dc and prescription instructions, pt was able to verbalize understanding, pt id band removed without complications. pt is able to ambulate with steady gait. pt took all belongings.
[2020-11-12 19:44] VITALS: BP 107/68
== END 2020-11-12 19:44 | disposition home or self-care (01) ==
LOC: EMR 19:19
DX: N94.6 Dysmenorrhea, unspecified (principal)
CPT/HCPCS: 81003; 81025; J1885; Z7502; 99283